=== PATIENT | male | born 1955 | race Caucasian/White ===

== ENCOUNTER 2018-10-21 17:29 | Emergency (ER) | payer OTHER ==
[~2018-10-21] VITALS: Ht 170.2 cm; Wt 65.0 kg
[2018-10-21] MEDS ORDERED: SOD CHLORIDE 0.9% 1,000 ML IV STA ×2 (17:39→17:44)
[2018-10-21 17:45] VITALS: Ht 170.2 cm; Wt 65.0 kg
[2018-10-21] MEDS ORDERED: PROCHLORPERAZINE 10 MG INJ IV ONE (18:00)
[2018-10-21] MEDS ORDERED: PROCHLORPERAZINE 10 MG TAB PO ONE (18:00)
--- NOTE | 2018-10-21 18:07 | ERD ---
ER Documentation Chief Complaint Chief Complaint BIB [facility] FOR EVAL OF DIZZINESS VOMITING WHILE AT WORK. HPI 62-year-old male with no known past medical history presenting with sudden onset of dizziness that started at work today. He had associated vomiting. He was brought in by ambulance for evaluation. He denies any associated headache, chest pain, shortness of breath, focal weakness or numbness. He states that he feels like he is floating. No vision disturbance. He has never felt like this before. He does not exercise every day strenuously. He is not sure if this is related to his exercise. He is eating and drinking normally. ROS All systems reviewed and are negative except as per history of present illness. Medications Home Meds No Active Prescriptions or Reported Meds Allergies Allergies: Coded Allergies: No Known Allergy (Unverified , 10/21/18) PMhx/Soc History of Surgery: Yes (cataract) Anesthesia Reaction: No Hx Neurological Disorder: No Hx Respiratory Disorders: No Hx Cardiac Disorders: No Hx Psychiatric Problems: No Hx Miscellaneous Medical Probl: No Hx Alcohol Use: No Hx Substance Use: No Hx Tobacco Use: No Smoking Status: Never smoker FmHx Family History: diabetes; No coronary disease Physical Exam Vitals Vital Signs Date Temp Pulse Resp B/P (MAP) Pulse Ox O2 O2 Flow FiO2 Time Delivery Rate 10/21/18 97.6 93 18 134/76 97 Room Air 20:55 (95) 10/21/18 78 18 128/81 97 Room Air 20:30 (97) 10/21/18 72 18 123/80 97 Room Air 18:30 (94) 10/21/18 97.3 72 18 137/82 99 17:45 (100) Physical Exam Const: Appears pale, diaphoretic Head: Atraumatic Eyes: Normal Conjunctiva, PERRLA, EOMI, no nystagmus ENT: Normal External Ears, Nose and Mouth. Neck: Full range of motion. No meningismus. Resp: Clear to auscultation bilaterally Cardio: Regular rate and rhythm, no murmurs. 2+ distal pulses in all 4 extremities Abd: Soft, non tender, non distended. Normal bowel sounds Skin: No petechiae or rashes Back: No midline or flank tenderness Ext: No cyanosis, or edema Neur: Awake and alert, oriented x3, normal speech, cranial nerves intact, strength and sensations intact in all 4 extremities Psych: Normal Mood and Affect Result Diagram: 10/21/18 1755 10/21/18 1755 Results 24 hrs Laboratory Tests Test 10/21/18 17:47 10/21/18 17:55 10/21/18 19:07 Bedside Glucose 304 mg/dL White Blood Count 7.5 10^3/ul Red Blood Count 4.28 10^6/ul Hemoglobin 12.9 g/dl Hematocrit 37.7 % Mean Corpuscular Volume 88.1 fl Mean Corpuscular Hemoglobin 30.1 pg Mean Corpuscular 34.2 g/dl Hemoglobin Concent Red Cell Distribution Width 12.3 % Platelet Count 226 10^3/UL Mean Platelet Volume 10.1 fl Immature Granulocytes % 0.100 % Neutrophils % 55.6 % Lymphocytes % 33.5 % Monocytes % 8.4 % Eosinophils % 1.9 % Basophils % 0.5 % Nucleated Red Blood Cells % 0.0 /100WBC Immature Granulocytes # 0.010 10^3/ul Neutrophils # 4.2 10^3/ul Lymphocytes # 2.5 10^3/ul Monocytes # 0.6 10^3/ul Eosinophils # 0.1 10^3/ul Basophils # 0.0 10^3/ul Nucleated Red Blood Cells # 0.0 10^3/ul Sodium Level 137 mmol/L Potassium Level 3.4 mmol/L Chloride Level 102 mmol/L Carbon Dioxide Level 25 mmol/L Anion Gap 10 Blood Urea Nitrogen 21 mg/dl Creatinine 1.07 mg/dl Est Glomerular Filtrat > 60 mL/min Rate mL/min Glucose Level 249 mg/dl Hemoglobin A1c 5.1 % Calcium Level 8.4 mg/dl Total Bilirubin 0.4 mg/dl Direct Bilirubin 0.00 mg/dl Indirect Bilirubin 0.4 mg/dl Aspartate Amino 29 IU/L Transf (AST/SGOT) Alanine 31 IU/L Aminotransferase (ALT/SGPT) Alkaline Phosphatase 107 IU/L Troponin I < 0.012 ng/ml Total Protein 6.8 g/dl Albumin 4.0 g/dl Globulin 2.80 g/dl Albumin/Globulin Ratio 1.42 Urine Color STRAW Urine Clarity CLEAR Urine pH 6.0 Urine Specific [place] 1.010 Urine Ketones NEGATIVE mg/dL Urine Nitrite NEGATIVE mg/dL Urine Bilirubin NEGATIVE mg/dL Urine Urobilinogen NEGATIVE mg/dL Urine Leukocyte Esterase NEGATIVE Darrin/ul Urine Microscopic RBC 2 /HPF Urine Microscopic WBC 0 /HPF Urine Hemoglobin 1+ mg/dL Urine Glucose 2+ mg/dL Urine Total Protein NEGATIVE mg/dl Current Medications Medications Dose Sig/Hernan Start Time Status Last (Trade) Ordered Route PRN Stop Time Admin Dose Reason Admin Sodium 1,000 ml @ Q1H STAT 10/21/18 DC 10/21/18 Chloride 1,000 mls/hr IV 17:39 18:01 10/21/18 18:38 Sodium 1,000 ml @ Q1H STAT 10/21/18 DC 10/21/18 Chloride 1,000 mls/hr IV 17:44 18:01 10/21/18 18:43 10 mg ONCE ONCE 10/21/18 DC Prochlorperaz PO 18:00 ine 10/21/18 18:00 (Compazine) 10 mg ONCE ONCE 10/21/18 DC 10/21/18 Prochlorperaz IV 18:00 18:02 ine 10/21/18 18:01 (Compazine Inj) Meclizine 25 mg ONCE ONCE 10/21/18 DC HCl PO 18:30 (Antivert) 10/21/18 18:31 Procedures/MDM EMERGENT LABS AND DIAGNOSTIC STUDIES: Lab Results above were reviewed and interpreted by me. CBC: no anemia or evidence of infection BMP: Hyperglycemic, possibly new onset diabetes. no e/o clinically significant electrolyte abnormality severe acidosis, alkalosis, renal failure, diabetic ketoacidosis Troponin within normal limits, not indicative of cardiac ischemia UA: +glucose 12-lead EKG was interpreted by Janice Ham MD: Normal Sinus Rhythm Normal axis Normal intervals No acute ST or T wave changes suggestive of acute ischemia or STEMI. Radiology Results as interpreted by Radiology below were reviewed by Gwen Ham MD: Chest x-ray shows no acute abnormalities Initial Nursing notes reviewed. Previous Medical Records requested via the Electronic Health Record. EMERGENCY DEPARTMENT COURSE / MEDICAL DECISION MAKING: The patients vitals are within normal limits and labs are unremarkable. The ECG did not show any concerning abnormalities. I have a low suspicion for an arrhythmia, acute coronary syndrome, PE or a CVA or intracranial hemorrhage. Isabel ology for his dizziness is unknown but likely benign I suspect it may be due to dehydration and possibly due to hyperglycemia. However there is no evidence of DKA.. Patient was treated with IV fluids with improvement of his symptoms. Upon reevaluation, he is asymptomatic and ambulating with a steady gait. Patient's syncopal symptoms have stabilized while in the department and are suitable for outpatient follow up. I advised follow up with primary care physician in 1-2 days for repeat blood sugar testing.. Return precautions were discussed at bedside. Patient's blood pressure was elevated (>120/80) but appears stable without evidence of hypertensive emergency or urgency. The patient was counseled about the risks of hypertension and urged to pursue outpatient monitoring and therapy within a week with their primary care physician. Departure Diagnosis: Primary Impression: Dizziness Additional Impression: Hyperglycemia Condition: Stable BETSY HAM MD Oct 21, 2018 18:07
[2018-10-21] MEDS: MECLIZINE 12.5 MG TAB PO ONE ×2 (18:30→18:43)
[2018-10-21 20:55] VITALS: BP 134/76; PULSE 93; RESP 18
== END 2018-10-21 21:05 | disposition home or self-care (01) ==
LOC: E/R 17:29
DX: R42 Dizziness and giddiness (principal); R73.9 Hyperglycemia, unspecified; R11.10 Vomiting, unspecified
CPT/HCPCS: 36415; 71045; 80053; 81001; 82962; 83036; 84484; 85025; 93005; 96374; 99285; J0780; J7030